=== PATIENT | male | born 1990 ===

== ENCOUNTER 2019-03-20 12:15 | Outpatient (CLI) | payer OTHER ==
--- NOTE | 2019-03-20 13:27 | ULT ---
BILATERAL RENAL ULTRASOUND: Date: 03/20/19 INDICATION: Abnormal renal function tests. FINDINGS: Both kidneys measure approximately 10.0 cm in length. Small cyst superior right kidney measuring 1.4 cm. Kidneys otherwise unremarkable. No evidence of hydronephrosis or solid mass. Urinary bladder is m ildly distended and appears unremarkable. IMPRESSION: Small right renal cyst. Renal ultrasound otherwise unremarkable. POS: OFF
== END 2019-03-20 12:16 | disposition home or self-care (01) ==
LOC: BICULT 12:15
DX: R94.4 Abnormal results of kidney function studies (principal); N28.1 Cyst of kidney, acquired
CPT/HCPCS: 76770